=== PATIENT | female | born 1980 ===

== ENCOUNTER 2020-10-28 09:43 | Inpatient (IN) | payer MEDICAID ==
[~2020-10-28] VITALS: Ht 167.6 cm; Wt 83.5 kg
[2020-10-28] MEDS ORDERED: LIDOCAINE 2%HCL (LOCAL ANESTH.) INJ 20ML MDV IJ PRN (10:00)
[2020-10-28] MEDS ORDERED: WITCH HAZEL-GLYCERIN PAD TOP PRN (10:00)
[2020-10-28] MEDS ORDERED: LACT. RINGERS/OXYTOCIN 20UNITS 500 ML IV ONE ×2 (10:00→10:30)
[2020-10-28] MEDS ORDERED: LACTATED RINGER'S 1,000 ML IV SCH (10:00)
[2020-10-28] MEDS ORDERED: DERMOPLAST 60ML BOTTLE TOP PRN (10:00)
[2020-10-28] MEDS ORDERED: PHISODERM TOP SOLN 240ML BTL TOP PRN (10:00)
[2020-10-28] MEDS ORDERED: PENICILLIN G POT 5MIL/D5 50ML 50 ML IV ONE (10:00)
[2020-10-28 10:31] LABS: Basophils # (auto) 0 10 ^3/uL (0-0.2); Basophils % (auto) 0.4 % (0.0-2.0); Eosinophils # (auto) 0 10 ^3/uL (0-0.8); Eosinophils % (auto) 0.3 % (0.0-7.0); Hemoglobin 12.5 g/dL (12.2-16.2); Lymphocytes # (auto) 2.2 10 ^3/uL (0.4-5.4); Mean Corpuscular Hgb Conc. 34.7 g/dL (32.0-36.0); Mean Corpuscular Volume 98.2 fL (80.0-100.0); Monocytes # (auto) 0.5 10 ^3/uL (0-1.3); Monocytes % (auto) 6.7 % (0.0-12.0); Neutrophils # (auto) 5.2 10 ^3/uL (1.6-8.6); Neutrophils % (auto) 65.6 % (37.0-80.0); Platelet Count (auto) 160 10^3/uL (140-450); Red Blood Cells 3.67 10^6/uL (4.0-5.20); Red Cell Distribution Width 13.3 % (11.8-14.3)
[2020-10-28 10:48] LABS: INR 0.97 (0.9-1.15); Partial Thromboplastin Time 24.9 sec (23.0-31.2)
[2020-10-28 10:52] LABS: Albumin 2.6 g/dL (3.4-5.0); Calcium 8.3 mg/dL (8.5-10.1); Potassium 3.5 mmol/L (3.5-5.1)
[2020-10-28 10:56] LABS: BUN/Creatinine Ratio 12.3; Bilirubin, Total 0.4 mg/dL (0.2-1.0); Total Protein 6.4 g/dL (6.4-8.2); Uric Acid 4.1 mg/dL (2.6-6.0)
[2020-10-28] MEDS: IBUPROFEN 600 MG TAB PO PRN ×2 (12:07→22:39)
[2020-10-28 12:25] LABS: Urine Bacteria NONE SEEN /hpf (None Seen); Urine Blood 1+ /uL (Negative); Urine WBC <1 /hpf (0 - 5)
[2020-10-28] MEDS ORDERED: PENICILLIN G POTASSIUM 2,500,000 UNITS in D5W 5% 50 ML IV SCH (14:00)
[2020-10-28 15:16] LABS: Alcohol, Urine < 3.0 mg/dL (0-10); Amphetamine Screen, Urine NEGATIVE (NEGATIVE); Barbiturate Scree,Urine NEGATIVE (NEGATIVE); Benzodiazephine Screen, Urine NEGATIVE (NEGATIVE); Cannabinoid Screen, Urine NEGATIVE (NEGATIVE); Cocaine Screen, Urine NEGATIVE (NEGATIVE); Opiate Scree,Urine NEGATIVE (NEGATIVE); Phencyclidine Screen, Urine NEGATIVE (NEGATIVE)
[2020-10-28 19:15] VITALS: BP 96/56
[2020-10-28 23:00] VITALS: BP 110/62
[2020-10-29 03:22] VITALS: BP 92/52
[2020-10-29 07:30] VITALS: BP 94/62
[2020-10-29 11:30] VITALS: BP 101/54
[2020-10-29] MEDS ORDERED: PREN1TAB71 OR (12:43)
[2020-10-29 14:06] LABS: RPR Non Reactive (Non Reactive)
== END 2020-10-29 13:30 | disposition home or self-care (01) | DRG 560 ==
LOC: LDRP 09:43 → OBSVTOIN 09:59
PROVIDERS: ADMIT Specialist; ATTEND Specialist
PROC: 10E0XZZ Delivery of Products of Conception, External Approach (ICD-10-PCS; principal; 2020-10-28)
PROC: 10907ZC Drainage of Amniotic Fluid, Therapeutic from Products of Conception, Via Natural or Artificial Opening (ICD-10-PCS; 2020-10-28)
DX: O24.410 Gestational diabetes mellitus in pregnancy, diet controlled (principal); Z20.822 Contact with and (suspected) exposure to COVID-19; Z37.0 Single live birth; Z3A.38 38 weeks gestation of pregnancy
CPT/HCPCS: 36415; 59025; 59409; 80053; 80307; 81001; 81002; 82948; 82962; 84550; 85025; 85610; 85730; 86592; 86850; 86900; 86901; 87426; 96360; 96361; G0378; J2590; J7060